=== PATIENT | female | born 1940 | race Asian ===

== ENCOUNTER → 2018-12-12 | Outpatient (CLI) | payer MEDICARE, OTHER ==
[~2018-12-12] MED LIST: LISI-662 PO
== END | disposition home or self-care (01) ==
LOC: RADPV 13:21
PROVIDERS: ATTEND Internal Medicine
DX: M43.8X4 Other specified deforming dorsopathies, thoracic region (principal); I70.0 Atherosclerosis of aorta; I10 Essential (primary) hypertension

== ENCOUNTER 2019-10-12 03:17 | Emergency (ER) | payer MEDICARE, OTHER ==
[~2019-10-12] VITALS: Ht 160 cm; Wt 63.6 kg
[2019-10-12] MEDS ORDERED: ASPI-1182 PO (03:30)
[2019-10-12 04:36] VITALS: BP 163/87
== END 2019-10-12 04:40 | disposition home or self-care (01) ==
LOC: EMS 03:19
DX: I83.892 Varicose veins of left lower extremity with other complications (principal); I83.91 Asymptomatic varicose veins of right lower extremity; I10 Essential (primary) hypertension; Z79.899 Other long term (current) drug therapy

== ENCOUNTER 2022-03-31 12:30 | Emergency (ER) | payer MEDICARE, OTHER ==
[~2022-03-31] VITALS: Ht 160 cm; Wt 63.6 kg
[~2022-03-31 12:30] MED LIST changes: +ASPI-1444 PO; -LISI-662 PO; +LISI-894 PO
[2022-03-31] MEDS ORDERED: MethylPREDNISolone SOD SUCC 125 MG/2 ML VIAL IM ONE (14:00)
[2022-03-31 14:38] VITALS: BP 126/101
[2022-03-31] MEDS ORDERED: COLC0.6T68 PO ×3 (15:06→15:55)
== END 2022-03-31 16:10 | disposition home or self-care (01) ==
LOC: EMS 12:32
DX: M10.9 Gout, unspecified (principal); I10 Essential (primary) hypertension
CPT/HCPCS: 73130; 96372; 99283; J2930